=== PATIENT | female | born 1990 | race Caucasian/White ===

== ENCOUNTER 2018-12-06 04:53 | Inpatient (IN) | payer BC ==
[2018-12-06] MEDS ORDERED: Misoprostol 200 MCG Tab PO PRN (05:34)
[2018-12-06] MEDS ORDERED: Butorphanol 1 MG/ML SDV IVPUSH PRN (05:34)
[2018-12-06] MEDS ORDERED: Water For Irrigation,Sterile 1,000 ML Container IRR PRN (05:34)
[2018-12-06] MEDS ORDERED: Lidocaine 1% 50 ML MDV INJECT PRN (05:34)
[2018-12-06] MEDS ORDERED: Methylergonovine 0.2 MG/1 ML Amp IM PRN (05:34)
[2018-12-06] MEDS ORDERED: Sodium Chloride 0.9% 10 ML Syringe FLUSH PRN (05:34)
[2018-12-06] MEDS ORDERED: Carboprost Tromethamine 250 MCG/1 ML Amp IM PRN (05:34)
[2018-12-06] MEDS ORDERED: Nalbuphine 10 MG/1 ML Vial IVPUSH PRN ×2 (05:34→15:51)
[2018-12-06] MEDS ORDERED: Tranexamic Acid 1,000 MG in Sodium Chloride 0.9% 100 ML IV PRN (05:34)
[2018-12-06] MEDS ORDERED: Sodium Chloride 0.9% 2.5 ML Syringe FLUSH PRN (05:34)
[2018-12-06] MEDS ORDERED: Oxytocin/0.9 % Sodium Chloride 30 UNIT/500 ML BAG IV SCH (05:45)
[2018-12-06] MEDS: Lactated Ringers 1,000 ML IV SCH ×3 (05:48→10:52)
[2018-12-06] MEDS ORDERED: Lidocaine HCl/EPINEPHrine 5 ML IJ ONE (06:21)
--- NOTE | 2018-12-06 06:55 | PCM.PREANE ---
Preanesthetic Assessment - Anesthesia/Transfusion/Family Hx Anesthesia History: Prior Anesthesia Without Reaction Other Type of Anesthesia Reaction Comment: family history of pseudocolinesterase deficiency Family History of Anesthesia Reaction: No Transfusion History: No Prior Transfusion(s) - Review of Systems General: No Symptoms Pulmonary: No Symptoms Cardiovascular: No Symptoms Gastrointestinal: No Symptoms Neurological: No Symptoms Other: Reports: None - Physical Assessment Height: 5 ft 3 in Weight: 78.018 kg ASA Class: 2 Mental Status: Alert & Oriented x3 Airway Class: Mallampati = 2 Dentition: Reports: Normal Dentition Thyro-Mental Finger Breadths: 3 Mouth Opening Finger Breadths: 3 ROM/Head Extension: Full Lungs: Clear to Auscultation, Normal Respiratory Effort Cardiovascular: Regular Rate, Regular Rhythm - Lab Values: Laboratory Last Values WBC 10.07 K/uL (4.0-11.0) 12/06/18 05:55 RBC 4.27 M/uL (4.30-5.90) L 12/06/18 05:55 Hgb 12.9 g/dL (12.0-16.0) 12/06/18 05:55 Hct 38.8 % (36.0-46.0) 12/06/18 05:55 MCV 90.9 fL (80.0-98.0) 12/06/18 05:55 MCH 30.2 pg (27.0-32.0) 12/06/18 05:55 MCHC 33.2 g/dL (31.0-37.0) 12/06/18 05:55 RDW Std Deviation 45.0 fl (28.0-62.0) 12/06/18 05:55 RDW Coeff of Shante 14 % (11.0-15.0) 12/06/18 05:55 Plt Count 97 K/uL (150-400) L 12/06/18 05:55 MPV 11.80 fL (7.40-12.00) 12/06/18 05:55 Nucleated RBC % 0.0 /100WBC 12/06/18 05:55 Nucleated RBCs # 0 K/uL 12/06/18 05:55 Membrane Rupture POSITIVE 12/06/18 05:05 Blood Type A POSITIVE 12/06/18 05:55 Antibody Screen NEGATIVE 12/06/18 05:55 - Allergies Allergies/Adverse Reactions: Allergies Allergy/AdvReac Type Severity Reaction Status Date / Time No Known Allergies Allergy Verified 12/02/18 10:04 - Acknowledgements Anesthesia Type Planned: Epidural Pt an Appropriate Candidate for the Planned Anesthesia: Yes Alternatives and Risks of Anesthesia Discussed w Pt/Guardian: Yes Pt/Guardian Understands and Agrees with Anesthesia Plan: Yes PreAnesthesia Questionnaire Cardiovascular History: Reports: None Respiratory History: Reports: None Gastrointestinal History: Reports: Other (See Below) Other Gastrointestinal History: occasional heartburn with Genitourinary History: Reports: None 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 LMP (Approximate): Neurological History: Reports: None Psychiatric History: Reports: None Endocrine/Metabolic History: Reports: None Hematologic History: Reports: Idiopathic Thrombocytopenia Immunologic History: Reports: None Oncologic (Cancer) History: Reports: None - Past Surgical History Head Surgeries/Procedures: Reports: None Female Surgical History: Reports: Section - SUBSTANCE USE Smoking Status *Q: Never Smoker Second Hand Smoke Exposure: No Recreational Drug Use History: No - HOME MEDS Home Medications: Home Meds PNV95/Ferrous Fumarate/FA [ Vitamin Tablet] 1 tab PO DAILY 12/02/18 [ History] Calcium Carbonate [Tums] 1 tab PO Q12HR PRN 12/06/18 [History] Ranitidine HCl [Zantac 75] 2 tab PO DAILY 12/06/18 [History] - CURRENT (IN HOUSE) MEDS Current Meds: Current Medications Butorphanol Tartrate (Stadol) 1 mg IVPUSH Q1H PRN PRN Reason: Pain Last Admin: 12/06/18 06:10 Dose: 1 mg Carboprost Tromethamine (Hemabate Ds) 250 mcg IM ASDIRECTED PRN PRN Reason: Post Hemorrhage Tranexamic Acid 1,000 mg/ (Sodium Chloride) 110 mls @ 660 mls/hr IV ONETIME PRN PRN Reason: Bleeding Lactated Ringer's (Ringers, Lactated) 1,000 mls @ 150 mls/hr IV ASDIRECTED BRIGIDA Last Admin: 12/06/18 05:48 Dose: 500 mls/hr Oxytocin/Sodium Chloride (Oxytocin 30 Unit/500 Ml-Ns) 30 unit in 500 mls @ 999 mls/hr IV TITRATE BRIG[facility] Lidocaine HCl (Xylocaine 1%) 50 ml INJECT ONETIME PRN PRN Reason: Laceration repair Methylergonovine Maleate (Methergine) 0.2 mg IM ASDIRECTED PRN PRN Reason: Post Hemorrhage Misoprostol (Cytotec) 200 mcg PO ONETIME PRN PRN Reason: Post Hemorrhage Nalbuphine HCl (Nubain) 10 mg IVPUSH Q1H PRN PRN Reason: Pain (severe 7-10) Sodium Chloride (Saline Flush) 10 ml FLUSH ASDIRECTED PRN PRN Reason: Keep Vein Open Sodium Chloride (Saline Flush) 2.5 ml FLUSH ASDIRECTED PRN PRN Reason: Keep Vein Open Sterile Water (Sterile Water For Irrigation) 1,000 ml IRR ASDIRECTED PRN PRN Reason: delivery Discontinued Medications Fentanyl/Bupivacaine HCl (Rnxohtfo-Usmuh-Qr 2 Mcg/Ml-0.125%) Confirm Administered Dose 100 mls @ as directed .ROUTE .STK-MED ONE Stop: 12/06/18 06:22 Lidocaine/Epinephrine (Lidocaine 1.5%-Epi 1:200,000) Confirm Administered Dose 5 ml IJ .STK-MED ONE Stop: 12/06/18 06:22
[2018-12-06] MEDS ORDERED: Acetaminophen 500 MG Tab PO ONE (12:45)
[2018-12-06] MEDS: Ampicillin/Sulbactam Na 3 GM in Sodium Chloride 0.9% 100 ML IV SCH ×2 (12:58→19:39)
[2018-12-06] MEDS ORDERED: fentaNYL 100 MCG/2 ML SDV ONE ×2 (13:29→15:27)
[2018-12-06] MEDS ORDERED: Ropivacaine 0.2% 2 MG/ML 20 ML SDV ONE (13:30)
--- NOTE | 2018-12-06 13:41 | PCM.SN ---
- Free Text/Narrative Note: Pt complaining of pain, 100 mcg of Fentanyl and 5 mL of 0.2% Naropin given via epidural.
[2018-12-06] MEDS ORDERED: Bupivacaine 0.5% 10 ML SDV ONE (15:05)
[2018-12-06] MEDS ORDERED: Morphine PF 10 MG/10 ML SDV ONE (15:30)
[2018-12-06] MEDS ORDERED: fentaNYL 100 MCG/2 ML SDV IVPUSH PRN (15:51)
[2018-12-06] MEDS ORDERED: HYDROmorphone 2 MG/ML Syringe IVPUSH ONE (15:51)
[2018-12-06] MEDS ORDERED: Methylergonovine 0.2 MG/1 ML Amp ONE (16:03)
[2018-12-06] MEDS ORDERED: Meperidine PF 25 MG/ML Syringe ONE (16:36)
[2018-12-06] MEDS ORDERED: Ketorolac 30 MG/ML SDV ONE (16:47)
[2018-12-06] MEDS ORDERED: Ondansetron 4 MG/2 ML SDV IVPUSH PRN (16:54)
[2018-12-06] MEDS ORDERED: Acetaminophen/oxyCODONE 325-5 MG Tab PO PRN ×2 (16:54)
[2018-12-06] MEDS ORDERED: Lanolin 100% Cream 7 GM Tube TOP PRN (16:54)
[2018-12-06] MEDS ORDERED: diphenhydrAMINE 50 MG/ML SDV IVPUSH PRN (16:54)
[2018-12-06] MEDS ORDERED: Bisacodyl 10 MG Supp RECTAL PRN (16:54)
[2018-12-06] MEDS ORDERED: Lactated Ringers 1,000 ML IV SCH (17:00)
--- NOTE | 2018-12-06 17:10 | PCM.POSTAN ---
POST ANESTHESIA ASSESSMENT - MENTAL STATUS Mental Status: Alert - RESPIRATORY Respiratory Status: Respiratory Rate WNL - CARDIOVASCULAR CV Status: Pulse Rate WNL - GASTROINTESTINAL GI Status: No Symptoms - POST OP HYDRATION Hydration Status: Adequate & Stable
--- NOTE | 2018-12-06 17:12 | PCM.OPNOTE ---
- General Post-Op/Procedure Note Date of Surgery/Procedure: 12/06/18 Operative Procedure(s): Emergency repeat section Findings: Male infant, Wt 3320 grams, Apgars 8 and 9. Grossly normal placenta with 3 vessel cord. Normal uterus, tubes and ovaries Pre Op Diagnosis: 39 weeks and 3 days. Unsucessful TOLAC. Arrest of descent. Suspected chorioamnionitis Post-Op Diagnosis: Same Anesthesia Technique: Epidural Primary Surgeon: Jenny Stokes Pathology: Placenta Fluid Replacement, Intraop: 1,700 Output, Urine Amount: 600 EBL in mLs: 500 Complications: None Condition: Good
--- NOTE | 2018-12-06 20:36 | OR ---
SURGEON: Jenny Stokes MD DATE OF PROCEDURE: 12/06/2018 PREOPERATIVE DIAGNOSES: 1. Term at 39 weeks and 3 days gestation. 2. Unsuccessful attempt at trial of labor after section. 3. Arrest of descent 4. Suspected chorioamnionitis. POSTOPERATIVE DIAGNOSES: 1. Term at 39 weeks and 3 days gestation. 2. Unsuccessful attempt at trial of labor after section. 3. Arrest of descent 4. Suspected chorioamnionitis. 5. Delivered. PROCEDURE: Repeat Low-transverse section via Pfannenstiel. ANESTHESIA: Epidural. ESTIMATED BLOOD LOSS: 500 mL. IV FLUIDS: 1700 mL of crystalloid. URINE OUTPUT: 600 mL, slightly blood tinged at the end of the procedure. COMPLICATIONS: None. CONDITION: Stable to recovery room. INDICATION: Delia is a 28-year-old G2, P1-0-0-1 who was admitted this morning in active spontaneous labor at 39 weeks and 3 days gestation. She was scheduled for and elective section today, if she did go into spontaneous labor. But came in active labor, with a history of spontaneous rupture of membranes at about 3:00 a.m. On admission she was 3 cm dilated and progressed within 2 hours to 5 cm and thereafter progressed to 8 cm, becoming fully dilated at about 9:46 a.m. this morning. With no urge to push,she was allowed to labor down for over an hour and then she commenced active pushing. Approximately two hours into active second stage, she was found to have maternal temperature with a T-max of a 100.8. There was also a change in baseline of the fetus from 120s to 150s. Unasyn was commenced for suspected chorioamnionitis She continued to push but despite good efforts, there was minimal descent of the head after 4 hours of pushing.The head remained at +1 station with moderate amount of caput. The heart tracing remained at category 2, mostly with variable decelerations and occasional late decelerations in the second stage. She was consented for an emergency for arrest of descent. FINDINGS: Male infant in cephalic presentation, delivered in occipitoanterior position, was not asynclitic. Clear amniotic fluid with no nuchal cord. Weight 3320 g. scores 8 and 9 at 1 and 5 minutes respectively. Normal-looking uterus, tubes, and ovaries. Grossly normal placenta with three-vessel cord. No pelvic adhesions or intraabdominal adhesions were noted. DESCRIPTION OF PROCEDURE: The patient was taken to the operating room where epidural was found to be adequate. She was then prepped and draped in the usual sterile fashion in dorsal supine position with a leftward tilt. Appropriate time-out was held. She had received 3 g of Unasyn approximately an hour prior to the for suspected chorioamnionitis. A Pfannenstiel incision was then made with a scalpel along the old scar and carried to the underlying layer of fascia with the Bovie. The fascia was incised in the midline, and the incision was extended laterally with the Bovie. The superior aspect of this incision was grasped with Paulina clamps, elevated, and underlying rectus muscles were dissected off with Pedraza. Attention was turned to the inferior aspect of this incision, which in similar fashion was grasped, tented up with Paulina clamps, and underlying rectus muscle was dissected off with the Bovie. The rectus muscle was then in the midline and with careful dissection, the parietal peritoneum was reached and entered sharply with Metzenbaum scissors. Careful sweep underneath revealed no vital organs adherent to the uterus or the underneath the peritoneum. The incision was then extended laterally by stretching with good visualization of the bladder. The Dav retractor was then inserted. The vesicouterine peritoneum was identified, grasped with pickups, and entered sharply with the Metzenbaum scissors, and the bladder flap was created digitally. The lower uterine segment, which was found to be quite thinned out was then incised in a transverse fashion as high as possible and extended upwards and downwards digitally. The 's head was lifted out easily from the pelvis and delivered atraumatically followed by the rest of the baby. The baby was vigorous and cried spontaneously at . The cord was double clamped, and the infant was handed over to the waiting nursery staff. Cord gas and blood samples were obtained. The placenta was then removed manually, and the uterus was cleaned of all clots and debris. The hysterotomy was repaired in 2 layers. The first layer was repaired with 0 Vicryl suture and a second imbricating layer was performed with 0 Monocryl suture. Excellent hemostasis was noted. The lower uterine segment was noted to be boggy, so the patient was given a dose of Methergine 0.25 mg IM. Thereafter, the uterus, firmed up quite nicely. The gutters were cleaned of all clots and debris. Then, the tubes and ovaries were inspected. Hemostasis was evident along the hysterotomy site. The Dav O retractor was then removed. The parietal edges were identified and clamped, and this layer was closed with 2-0 Vicryl in a running fashion. The muscular layer was reapproximated with 2-0 Vicryl using mattress sutures. The fascia was then reapproximated with 0 Vicryl suture in a running fashion. The subcuticular layer was made hemostatic with Bovie. The skin was closed using subcuticular stitches with 4-0 Monocryl. The patient tolerated the procedure well. Sponge, instrument, and needle counts were correct at the end of the procedure. The patient was taken to the recovery room in a stable condition. The baby was taken to the nursery in a stable condition. ADUMVIV / MIGUELL /[id number] MTDLia
[2018-12-06] MEDS: Docusate Sodium 100 MG Cap PO SCH (21:36)
[2018-12-06] MEDS: Ketorolac 30 MG/ML SDV IVPUSH SCH (23:38)
[2018-12-07] MEDS: Ampicillin/Sulbactam Na 3 GM in Sodium Chloride 0.9% 100 ML IV SCH ×3 (00:44→13:01)
[2018-12-07] MEDS: Ketorolac 30 MG/ML SDV IVPUSH SCH ×4 (05:53→18:06)
--- NOTE | 2018-12-07 08:01 | PCM48HPAN ---
Post Anesthesia Note - EVALUATION WITHIN 48HRS OF ANESTHETIC Vital Signs in Normal Range: Yes Patient Participated in Evaluation: Yes Respiratory Function Stable: Yes Airway Patent: Yes Cardiovascular Function Stable: Yes Hydration Status Stable: Yes Pain Control Satisfactory: Yes Nausea and Vomiting Control Satisfactory: Yes Mental Status Recovered: Yes - COMMENTS/OBSERVATIONS Free Text/Narrative:: Pt doing well this AM. States she did have some pruritis overnight, but unsure if she received medication for it - reminded that she does have medication ordered if she needs it. Pain controlled well. One bout of nausea early on last night, but treated with medication and no problems since. No apparent anesthesia complications.
[2018-12-07] MEDS: Docusate Sodium 100 MG Cap PO SCH ×2 (08:30→21:33)
--- NOTE | 2018-12-07 08:49 | PCM.PNPP ---
- General Info Date of Service: 12/07/18 Functional Status: Reports: Pain Controlled, Tolerating Diet, Ambulating - Review of Systems General: Denies: Fever HEENT: Denies: Headaches Pulmonary: Denies: Shortness of Breath, Pleuritic Chest Pain Cardiovascular: Denies: Chest Pain, Palpitations, Dyspnea on Exertion Gastrointestinal: Denies: Abdominal Pain Genitourinary: Denies: Flank Pain - General Info Date of Service: 12/07/18 - Patient Data Vital Signs - Most Recent: Last Vital Signs Temp 36.4 C 12/07/18 04:45 Pulse 101 H 12/07/18 07:00 Resp 16 12/07/18 07:00 BP 107/65 12/07/18 04:45 Pulse Ox 97 12/07/18 07:00 Weight - Most Recent: 172 lb I&O - Last 24 Hours: Intake & Output 12/06/18 12/07/18 12/07/18 22:59 06:59 14:59 Intake Total 3800 750 Output Total 3575 1600 Balance 225 -850 Lab Results - Last 24 Hours: Laboratory Results - last 24 hr 12/06/18 12/07/18 Range/Units 15:46 05:10 Hgb 12.2 (12.0-16.0) g/dL Hct 36.1 (36.0-46.0) % Cord ABG pH 7.265 (7.18-7.38) Cord ABG Base Excess -6 (-10--2) Cord VBG pH 7.301 (7.25-7.45) Cord VBG Base Excess -7 (-10--2) Med Orders - Current: Current Medications Bisacodyl (Dulcolax) 10 mg RECTAL ONETIME PRN PRN Reason: Constipation Diphenhydramine HCl (Benadryl) 25 mg IVPUSH Q6H PRN PRN Reason: Itching or Nausea Docusate Sodium (Colace) 100 mg PO BID BRIGIDA Last Admin: 12/07/18 08:30 Dose: 100 mg Emollient Ointment (Lansinoh Hpa) 0 gm TOP ASDIRECTED PRN PRN Reason: Sore Nipples Fentanyl (Sublimaze) 50 mcg IVPUSH Q5M PRN PRN Reason: Pain (severe 7-10) Stop: 12/07/18 15:52 Ampicillin Sodium/Sulbactam (Sodium 3 gm/ Sodium Chloride) 100 mls @ 200 mls/ hr IV Q6H [facility] Last Admin: 12/07/18 07:09 Dose: 200 mls/hr Lactated Ringer's (Ringers, Lactated) 1,000 mls @ 125 mls/hr IV ASDIRECTED [facility] Last Admin: 12/06/18 19:39 Dose: 125 mls/hr Ibuprofen (Motrin) 800 mg PO Q8H PRN PRN Reason: mild pain or fever Ketorolac Tromethamine (Toradol) 30 mg IVPUSH Q6H [facility] Stop: 12/07/18 17:01 Last Admin: 12/07/18 08:15 Dose: Not Given Nalbuphine HCl (Nubain) 2.5 mg IVPUSH Q3H PRN PRN Reason: Pruritis Stop: 12/07/18 15:52 Last Admin: 12/07/18 08:26 Dose: 2.5 mg Ondansetron HCl (Zofran) 4 mg IVPUSH Q4H PRN PRN Reason: Nausea/Vomiting Last Admin: 12/06/18 18:10 Dose: 4 mg Oxycodone/Acetaminophen (Percocet 325-5 Mg) 1 tab PO Q4H PRN PRN Reason: Pain (moderate 4-6) Oxycodone/Acetaminophen (Percocet 325-5 Mg) 2 tab PO Q4H PRN PRN Reason: Pain (moderate 4-6) Discontinued Medications Acetaminophen (Tylenol Extra Strength) 1,000 mg PO ONETIME ONE Stop: 12/06/18 12:46 Last Admin: 12/06/18 13:16 Dose: 1,000 mg Bupivacaine HCl (Sensorcaine-Mpf 0.5%) Confirm Administered Dose 20 ml .ROUTE .STK-MED ONE Stop: 12/06/18 15:06 Butorphanol Tartrate (Stadol) 1 mg IVPUSH Q1H PRN PRN Reason: Pain Last Admin: 12/06/18 06:10 Dose: 1 mg Carboprost Tromethamine (Hemabate Ds) 250 mcg IM ASDIRECTED PRN PRN Reason: Post Hemorrhage Fentanyl (Sublimaze) Confirm Administered Dose 100 mcg .ROUTE .STK-MED ONE Stop: 12/06/18 13:30 Fentanyl (Sublimaze) Confirm Administered Dose 100 mcg .ROUTE .STK-MED ONE Stop: 12/06/18 15:28 Hydromorphone HCl (Dilaudid) 2 mg IVPUSH ONETIME ONE Stop: 12/06/18 15:52 Tranexamic Acid 1,000 mg/ (Sodium Chloride) 110 mls @ 660 mls/hr IV ONETIME PRN PRN Reason: Bleeding Lactated Ringer's (Ringers, Lactated) 1,000 mls @ 150 mls/hr IV ASDIRECTED [facility]IGIDA Last Admin: 12/06/18 10:52 Dose: 150 mls/hr Oxytocin/Sodium Chloride (Oxytocin 30 Unit/500 Ml-Ns) 30 unit in 500 mls @ 999 mls/hr IV TITRATE [facility] Fentanyl/Bupivacaine HCl (Hrnovvuh-Vflru-Dr 2 Mcg/Ml-0.125%) Confirm Administered Dose 100 mls @ as directed .ROUTE .STK-MED ONE Stop: 12/06/18 06:22 Fentanyl/Bupivacaine HCl (Jbhtiapm-Aufip-Fl 2 Mcg/Ml-0.125%) Confirm Administered Dose 100 mls @ as directed .ROUTE .STK-MED ONE Stop: 12/06/18 14:59 Ketorolac Tromethamine (Toradol) Confirm Administered Dose 30 mg .ROUTE .STK- MED ONE Stop: 12/06/18 16:48 Last Admin: 12/06/18 16:47 Dose: 30 mg Lidocaine HCl (Xylocaine 1%) 50 ml INJECT ONETIME PRN PRN Reason: Laceration repair Lidocaine/Epinephrine (Lidocaine 1.5%-Epi 1:200,000) Confirm Administered Dose 5 ml IJ .STK-MED ONE Stop: 12/06/18 06:22 Meperidine HCl (Demerol) Confirm Administered Dose 25 mg .ROUTE .STK-MED ONE Stop: 12/06/18 16:37 Methylergonovine Maleate (Methergine) 0.2 mg IM ASDIRECTED PRN PRN Reason: Post Hemorrhage Methylergonovine Maleate (Methergine) Confirm Administered Dose 0.2 mg .ROUTE .STK-MED ONE Stop: 12/06/18 16:04 Misoprostol (Cytotec) 200 mcg PO ONETIME PRN PRN Reason: Post Hemorrhage Morphine Sulfate (Duramorph Pf) Confirm Administered Dose 10 mg .ROUTE .STK-MED ONE Stop: 12/06/18 15:31 Nalbuphine HCl (Nubain) 10 mg IVPUSH Q1H PRN PRN Reason: Pain (severe 7-10) Ropivacaine (Naropin 0.2%) Confirm Administered Dose 20 ml .ROUTE .STK-MED ONE Stop: 12/06/18 13:31 Sodium Chloride (Saline Flush) 10 ml FLUSH ASDIRECTED PRN PRN Reason: Keep Vein Open Sodium Chloride (Saline Flush) 2.5 ml FLUSH ASDIRECTED PRN PRN Reason: Keep Vein Open Sterile Water (Sterile Water For Irrigation) 1,000 ml IRR ASDIRECTED PRN PRN Reason: delivery - Infant Interaction Infant Disposition, : [place] in Room with Family Infant Interaction: Not Applicable Infant Feeding: Bottle Fed , Encouraged to Breastfeed Support Person: - Recovery Exam Fundal Tone: Firm Fundal Level: 1 Fingerbreadths Below Umbilicus Fundal Placement: Midline Lochia Amount: Small Lochia Color: Rubra/Red Perineum Description: Ecchymotic, Edematous Episiotomy/Laceration: None Bladder Status: Indwelling Catheter in Place Urinary Elimination: Indwelling Catheter - Exam General: Alert, Oriented Lungs: Clear to Auscultation, Normal Respiratory Effort Cardiovascular: Regular Rate, Regular Rhythm GI/Abdominal Exam: Normal Bowel Sounds, Soft Extremities: Non-Tender, Pedal Edema Skin: Warm Wound/Incisions: Dressing Dry and Intact Psy/Mental Status: Alert, Normal Affect, Normal Mood - Problem List & Annotations (1) Delivery of by section SNOMED Code(s): 742968390 Code(s): O82 - ENCOUNTER FOR DELIVERY WITHOUT INDICATION Status: Acute Current Visit: Yes - Problem List Review Problem List Initiated/Reviewed/Updated: Yes - My Orders Last 24 Hours: My Active Orders 12/06/18 12:45 Ampicillin/Sulbactam Na [Unasyn] 3 gm Sodium Chloride 0.9% [Normal Saline] 100 ml IV Q6H 12/06/18 16:54 Urinary Catheter Removal [RC] Per Unit Routine Acetaminophen/oxyCODONE [Percocet 325-5 MG] 1 tab PO Q4H PRN Acetaminophen/oxyCODONE [Percocet 325-5 MG] 2 tab PO Q4H PRN Bisacodyl [Dulcolax] 10 mg RECTAL ONETIME PRN Ibuprofen [Motrin] 800 mg PO Q8H PRN Lanolin [Lansinoh HPA] See Dose Instructions TOP ASDIRECTED PRN Ondansetron [Zofran] 4 mg IVPUSH Q4H PRN diphenhydrAMINE [Benadryl] 25 mg IVPUSH Q6H PRN Abdominal Binder [OM.PC] Routine Resuscitation Status Routine 12/06/18 16:55 Patient Status [ADT] Routine Ambulate [RC] PER UNIT ROUTINE Antiembolic Devices [RC] PER UNIT ROUTINE Communication Order [RC] PER UNIT ROUTINE Communication Order [RC] PER UNIT ROUTINE Communication Order [RC] Per Unit Routine May Shower [RC] ASDIRECTED RT Incentive Spirometry [RC] Q2HWA Vital Signs [RC] PER UNIT ROUTINE Assess Lochia [WOMSER] Per Unit Routine Assess Uterine Involution [WOMSER] Per Unit Routine Breast Pump [WOMSER] Per Unit Routine Peripheral IV Discontinue [OM.PC] Routine Sequential Compression Device [OM.PC] Per Unit Routine 12/06/18 16:56 Intake and Output [RC] Q4H Notify Provider Intake and Out [RC] ASDIRECTED Notify Provider Vital Signs [RC] ASDIRECTED 12/06/18 17:00 Ketorolac [Toradol] 30 mg IVPUSH Q6H Lactated Ringers [Ringers, Lactated] 1,000 ml IV ASDIRECTED 12/06/18 21:00 Docusate Sodium [Colace] 100 mg PO BID 12/07/18 Breakfast Regular Diet [DIET] - Assessment Assessment:: POD#1 s/p emergency for arrest of descent following an unsuccessful TOLAC Doing well - Plan Plan:: Remove esparza Continue current care and aim for discharge tomorrow
[2018-12-08] MEDS: Ibuprofen 800 MG Tab PO PRN ×2 (00:01→07:55)
--- NOTE | 2018-12-08 08:13 | PCM.PNPP ---
<Shantal Huddleston - Last Filed: 12/08/18 08:11> - General Info Date of Service: 12/08/18 Functional Status: Reports: Pain Controlled, Tolerating Diet, Ambulating, Urinating - Review of Systems General: Denies: Fever, Weakness, Fatigue Pulmonary: Denies: Shortness of Breath, Pleuritic Chest Pain, Cough Cardiovascular: Denies: Chest Pain, Palpitations, Dyspnea on Exertion Gastrointestinal: Denies: Abdominal Pain Genitourinary: Denies: Dysuria - General Info Date of Service: 12/08/18 - Patient Data Vital Signs - Most Recent: Last Vital Signs Temp 36.3 C 12/08/18 04:20 Pulse 83 12/08/18 04:20 Resp 17 12/08/18 04:20 BP 94/59 L 12/08/18 04:20 Pulse Ox 97 12/08/18 04:20 Weight - Most Recent: 172 lb Med Orders - Current: Current Medications Bisacodyl (Dulcolax) 10 mg RECTAL ONETIME PRN PRN Reason: Constipation Diphenhydramine HCl (Benadryl) 25 mg IVPUSH Q6H PRN PRN Reason: Itching or Nausea Docusate Sodium (Colace) 100 mg PO BID [facility] Last Admin: 12/07/18 21:33 Dose: 100 mg Emollient Ointment (Lansinoh Hpa) 0 gm TOP ASDIRECTED PRN PRN Reason: Sore Nipples Lactated Ringer's (Ringers, Lactated) 1,000 mls @ 125 mls/hr IV ASDIRECTED [facility] Last Admin: 12/06/18 19:39 Dose: 125 mls/hr Ibuprofen (Motrin) 800 mg PO Q8H PRN PRN Reason: mild pain or fever Last Admin: 12/08/18 07:55 Dose: 800 mg Ondansetron HCl (Zofran) 4 mg IVPUSH Q4H PRN PRN Reason: Nausea/Vomiting Last Admin: 12/06/18 18:10 Dose: 4 mg Oxycodone/Acetaminophen (Percocet 325-5 Mg) 1 tab PO Q4H PRN PRN Reason: Pain (moderate 4-6) Oxycodone/Acetaminophen (Percocet 325-5 Mg) 2 tab PO Q4H PRN PRN Reason: Pain (moderate 4-6) Discontinued Medications Acetaminophen (Tylenol Extra Strength) 1,000 mg PO ONETIME ONE Stop: 12/06/18 12:46 Last Admin: 12/06/18 13:16 Dose: 1,000 mg Bupivacaine HCl (Sensorcaine-Mpf 0.5%) Confirm Administered Dose 20 ml .ROUTE .STK-MED ONE Stop: 12/06/18 15:06 Butorphanol Tartrate (Stadol) 1 mg IVPUSH Q1H PRN PRN Reason: Pain Last Admin: 12/06/18 06:10 Dose: 1 mg Carboprost Tromethamine (Hemabate Ds) 250 mcg IM ASDIRECTED PRN PRN Reason: Post Hemorrhage Fentanyl (Sublimaze) Confirm Administered Dose 100 mcg .ROUTE .STK-MED ONE Stop: 12/06/18 13:30 Fentanyl (Sublimaze) Confirm Administered Dose 100 mcg .ROUTE .STK-MED ONE Stop: 12/06/18 15:28 Fentanyl (Sublimaze) 50 mcg IVPUSH Q5M PRN PRN Reason: Pain (severe 7-10) Stop: 12/07/18 15:52 Hydromorphone HCl (Dilaudid) 2 mg IVPUSH ONETIME ONE Stop: 12/06/18 15:52 Tranexamic Acid 1,000 mg/ (Sodium Chloride) 110 mls @ 660 mls/hr IV ONETIME PRN PRN Reason: Bleeding Lactated Ringer's (Ringers, Lactated) 1,000 mls @ 150 mls/hr IV ASDIRECTED [facility] Last Admin: 12/06/18 10:52 Dose: 150 mls/hr Oxytocin/Sodium Chloride (Oxytocin 30 Unit/500 Ml-Ns) 30 unit in 500 mls @ 999 mls/hr IV TITRATE [facility] Fentanyl/Bupivacaine HCl (Cemvmvdw-Ffwcx-Ef 2 Mcg/Ml-0.125%) Confirm Administered Dose 100 mls @ as directed .ROUTE .STK-MED ONE Stop: 12/06/18 06:22 Ampicillin Sodium/Sulbactam (Sodium 3 gm/ Sodium Chloride) 100 mls @ 200 mls/ hr IV Q6H [facility] Last Admin: 12/07/18 13:01 Dose: 200 mls/hr Fentanyl/Bupivacaine HCl (Bgizdflb-Btnfj-Uv 2 Mcg/Ml-0.125%) Confirm Administered Dose 100 mls @ as directed .ROUTE .STK-MED ONE Stop: 12/06/18 14:59 Ketorolac Tromethamine (Toradol) Confirm Administered Dose 30 mg .ROUTE .STK- MED ONE Stop: 12/06/18 16:48 Last Admin: 12/06/18 16:47 Dose: 30 mg Ketorolac Tromethamine (Toradol) 30 mg IVPUSH Q6H [facility] Stop: 12/07/18 17:01 Last Admin: 12/07/18 18:06 Dose: 30 mg Lidocaine HCl (Xylocaine 1%) 50 ml INJECT ONETIME PRN PRN Reason: Laceration repair Lidocaine/Epinephrine (Lidocaine 1.5%-Epi 1:200,000) Confirm Administered Dose 5 ml IJ .STK-MED ONE Stop: 12/06/18 06:22 Meperidine HCl (Demerol) Confirm Administered Dose 25 mg .ROUTE .STK-MED ONE Stop: 12/06/18 16:37 Methylergonovine Maleate (Methergine) 0.2 mg IM ASDIRECTED PRN PRN Reason: Post Hemorrhage Methylergonovine Maleate (Methergine) Confirm Administered Dose 0.2 mg .ROUTE .STK-MED ONE Stop: 12/06/18 16:04 Misoprostol (Cytotec) 200 mcg PO ONETIME PRN PRN Reason: Post Hemorrhage Morphine Sulfate (Duramorph Pf) Confirm Administered Dose 10 mg .ROUTE .STK-MED ONE Stop: 12/06/18 15:31 Nalbuphine HCl (Nubain) 10 mg IVPUSH Q1H PRN PRN Reason: Pain (severe 7-10) Nalbuphine HCl (Nubain) 2.5 mg IVPUSH Q3H PRN PRN Reason: Pruritis Stop: 12/07/18 15:52 Last Admin: 12/07/18 08:26 Dose: 2.5 mg Ropivacaine (Naropin 0.2%) Confirm Administered Dose 20 ml .ROUTE .STK-MED ONE Stop: 12/06/18 13:31 Sodium Chloride (Saline Flush) 10 ml FLUSH ASDIRECTED PRN PRN Reason: Keep Vein Open Sodium Chloride (Saline Flush) 2.5 ml FLUSH ASDIRECTED PRN PRN Reason: Keep Vein Open Sterile Water (Sterile Water For Irrigation) 1,000 ml IRR ASDIRECTED PRN PRN Reason: delivery - Interaction Disposition, : [facility] in Room with Family Interaction: Not Applicable Feeding: Bottle Fed , Encouraged to Breastfeed Support Person: - Recovery Exam Fundal Tone: Firm, Firms with Massage Fundal Level: At Umbilicus Fundal Placement: Midline Lochia Amount: Scant Lochia Color: Rubra/Red Perineum Description: Intact, Minimal Bruising/Swelling Episiotomy/Laceration: Approximated Bladder Status: Voiding Urinary Elimination: Voided - Exam General: Alert, Oriented Neck: Supple Lungs: Clear to Auscultation, Normal Respiratory Effort Cardiovascular: Regular Rate, Regular Rhythm GI/Abdominal Exam: Normal Bowel Sounds, Soft, Non-Tender, No Distention, No Mass , Pelvis Stable Extremities: Normal Inspection, Normal Range of Motion, Non-Tender, Normal Capillary Refill, Pedal Edema (trace) Skin: Warm, Dry, Intact - Problem List Review Problem List Initiated/Reviewed/Updated: Yes - Assessment Assessment:: POD#2 s/p RLTCS with minimal pain and lochia. Bottle feed . Discharge home today. - Plan Plan:: Discharge home today. Rx for Percocet to use as needed for pain. Instructed patient to call if she develops fever greater than 101 or bleeding through a large pad an hour. No lifting greater than 10lbs for 6 weeks. F/U with [facility] in 2 and 6 weeks <Jenny Stokes - Last Filed: 12/08/18 09:04> - Patient Data Vital Signs - Most Recent: Last Vital Signs Temp 36.7 C 12/08/18 07:55 Pulse 84 12/08/18 07:55 Resp 18 12/08/18 07:55 BP 121/64 12/08/18 07:55 Pulse Ox 98 12/08/18 07:55 Med Orders - Current: Current Medications Bisacodyl (Dulcolax) 10 mg RECTAL ONETIME PRN PRN Reason: Constipation Diphenhydramine HCl (Benadryl) 25 mg IVPUSH Q6H PRN PRN Reason: Itching or Nausea Docusate Sodium (Colace) 100 mg PO BID [facility] Last Admin: 12/08/18 08:43 Dose: 100 mg Emollient Ointment (Lansinoh Hpa) 0 gm TOP ASDIRECTED PRN PRN Reason: Sore Nipples Lactated Ringer's (Ringers, Lactated) 1,000 mls @ 125 mls/hr IV ASDIRECTED [facility] Last Admin: 12/06/18 19:39 Dose: 125 mls/hr Ibuprofen (Motrin) 800 mg PO Q8H PRN PRN Reason: mild pain or fever Last Admin: 12/08/18 07:55 Dose: 800 mg Ondansetron HCl (Zofran) 4 mg IVPUSH Q4H PRN PRN Reason: Nausea/Vomiting Last Admin: 12/06/18 18:10 Dose: 4 mg Oxycodone/Acetaminophen (Percocet 325-5 Mg) 1 tab PO Q4H PRN PRN Reason: Pain (moderate 4-6) Oxycodone/Acetaminophen (Percocet 325-5 Mg) 2 tab PO Q4H PRN PRN Reason: Pain (moderate 4-6) Last Admin: 12/08/18 08:53 Dose: 2 tab Discontinued Medications Acetaminophen (Tylenol Extra Strength) 1,000 mg PO ONETIME ONE Stop: 12/06/18 12:46 Last Admin: 12/06/18 13:16 Dose: 1,000 mg Bupivacaine HCl (Sensorcaine-Mpf 0.5%) Confirm Administered Dose 20 ml .ROUTE .STK-MED ONE Stop: 12/06/18 15:06 Butorphanol Tartrate (Stadol) 1 mg IVPUSH Q1H PRN PRN Reason: Pain Last Admin: 12/06/18 06:10 Dose: 1 mg Carboprost Tromethamine (Hemabate Ds) 250 mcg IM ASDIRECTED PRN PRN Reason: Post Hemorrhage Fentanyl (Sublimaze) Confirm Administered Dose 100 mcg .ROUTE .STK-MED ONE Stop: 12/06/18 13:30 Fentanyl (Sublimaze) Confirm Administered Dose 100 mcg .ROUTE .STK-MED ONE Stop: 12/06/18 15:28 Fentanyl (Sublimaze) 50 mcg IVPUSH Q5M PRN PRN Reason: Pain (severe 7-10) Stop: 12/07/18 15:52 Hydromorphone HCl (Dilaudid) 2 mg IVPUSH ONETIME ONE Stop: 12/06/18 15:52 Tranexamic Acid 1,000 mg/ (Sodium Chloride) 110 mls @ 660 mls/hr IV ONETIME PRN PRN Reason: Bleeding Lactated Ringer's (Ringers, Lactated) 1,000 mls @ 150 mls/hr IV ASDIRECTED [facility] Last Admin: 12/06/18 10:52 Dose: 150 mls/hr Oxytocin/Sodium Chloride (Oxytocin 30 Unit/500 Ml-Ns) 30 unit in 500 mls @ 999 mls/hr IV TITRATE [facility] Fentanyl/Bupivacaine HCl (Kotqqvji-Bhnpj-Tc 2 Mcg/Ml-0.125%) Confirm Administered Dose 100 mls @ as directed .ROUTE .STK-MED ONE Stop: 12/06/18 06:22 Ampicillin Sodium/Sulbactam (Sodium 3 gm/ Sodium Chloride) 100 mls @ 200 mls/ hr IV Q6H [facility] Last Admin: 12/07/18 13:01 Dose: 200 mls/hr Fentanyl/Bupivacaine HCl (Ujsgoozq-Swmrp-Zs 2 Mcg/Ml-0.125%) Confirm Administered Dose 100 mls @ as directed .ROUTE .STK-MED ONE Stop: 12/06/18 14:59 Ketorolac Tromethamine (Toradol) Confirm Administered Dose 30 mg .ROUTE .STK- MED ONE Stop: 12/06/18 16:48 Last Admin: 12/06/18 16:47 Dose: 30 mg Ketorolac Tromethamine (Toradol) 30 mg IVPUSH Q6H [facility] Stop: 12/07/18 17:01 Last Admin: 12/07/18 18:06 Dose: 30 mg Lidocaine HCl (Xylocaine 1%) 50 ml INJECT ONETIME PRN PRN Reason: Laceration repair Lidocaine/Epinephrine (Lidocaine 1.5%-Epi 1:200,000) Confirm Administered Dose 5 ml IJ .STK-MED ONE Stop: 12/06/18 06:22 Meperidine HCl (Demerol) Confirm Administered Dose 25 mg .ROUTE .STK-MED ONE Stop: 12/06/18 16:37 Methylergonovine Maleate (Methergine) 0.2 mg IM ASDIRECTED PRN PRN Reason: Post Hemorrhage Methylergonovine Maleate (Methergine) Confirm Administered Dose 0.2 mg .ROUTE .STK-MED ONE Stop: 12/06/18 16:04 Misoprostol (Cytotec) 200 mcg PO ONETIME PRN PRN Reason: Post Hemorrhage Morphine Sulfate (Duramorph Pf) Confirm Administered Dose 10 mg .ROUTE .STK-MED ONE Stop: 12/06/18 15:31 Nalbuphine HCl (Nubain) 10 mg IVPUSH Q1H PRN PRN Reason: Pain (severe 7-10) Nalbuphine HCl (Nubain) 2.5 mg IVPUSH Q3H PRN PRN Reason: Pruritis Stop: 12/07/18 15:52 Last Admin: 12/07/18 08:26 Dose: 2.5 mg Ropivacaine (Naropin 0.2%) Confirm Administered Dose 20 ml .ROUTE .[employer].-MED ONE Stop: 12/06/18 13:31 Sodium Chloride (Saline Flush) 10 ml FLUSH ASDIRECTED PRN PRN Reason: Keep Vein Open Sodium Chloride (Saline Flush) 2.5 ml FLUSH ASDIRECTED PRN PRN Reason: Keep Vein Open Sterile Water (Sterile Water For Irrigation) 1,000 ml IRR ASDIRECTED PRN PRN Reason: delivery - Problem List & Annotations (1) Delivery of by section SNOMED Code(s): 807937306 Code(s): O82 - ENCOUNTER FOR DELIVERY WITHOUT INDICATION Status: Acute Current Visit: Yes - Assessment Assessment:: Patient was seen independently and agree with above - Plan Plan:: Discharge later today
[2018-12-08] MEDS: Docusate Sodium 100 MG Cap PO SCH (08:43)
== END 2018-12-08 11:15 | disposition home or self-care (01) | DRG 540 ==
LOC: INTOOBSV 04:53 → MW.OB 04:53 → OBSVTOIN 15:46 → MW.OB 16:41
PROVIDERS: ADMIT Obstetrics & Gynecology; ATTEND Obstetrics & Gynecology
PROC: 6A550ZT Pheresis of Cord Blood Stem Cells, Single (ICD-10-PCS; principal; 2018-12-06)
PROC: 10D00Z1 Extraction of Products of Conception, Low, Open Approach (ICD-10-PCS; principal; 2018-12-06)
DX: O34.211 Maternal care for low transverse scar from previous cesarean delivery (principal); N85.8 Other specified noninflammatory disorders of uterus; Z37.0 Single live birth; O32.4XX0 Maternal care for high head at term, not applicable or unspecified; Z3A.39 39 weeks gestation of pregnancy; O41.1230 Chorioamnionitis, third trimester, not applicable or unspecified; O99.12 Other diseases of the blood and blood-forming organs and certain disorders involving the immune mechanism complicating childbirth; D69.3 Immune thrombocytopenic purpura; O99.73 Diseases of the skin and subcutaneous tissue complicating the puerperium; L29.9 Pruritus, unspecified
CPT/HCPCS: 36415; 51702; 59025; 82803; 84112; 85014; 85018; 85027; 86850; 86900; 86901; 88307; A9270-GY; J0295; J0595; J1885; J2175; J2210; J2270; J2300; J2405; J2795; J3010; J3490; J7030; J7120